=== PATIENT | male | born 1990 | race Caucasian/White ===

== ENCOUNTER 2019-03-04 05:44 | Emergency (ER) | payer OTHER ==
[~2019-03-04] VITALS: Ht 177.8 cm; Wt 95.5 kg
[2019-03-04 06:44] LABS: BASOPHILS # (AUTO) 0.07 x10^3/uL (0-0.1); BASOPHILS % (AUTO) 1 % (0-1); EOSINOPHILS # (AUTO) 0.18 x10^3/uL (0-0.4); EOSINOPHILS % (AUTO) 3 % (1-7); LYMPHOCYTES # (AUTO) 1.28 x10^3/uL (1-3.4); LYMPHOCYTES % (AUTO) 19 % (22-44); MD NO; MEAN CORPUSCULAR HEMOGLOBIN 30.6 pg (27.5-34.5); MEAN CORPUSCULAR HGB CONC 33.1 g/dL (33.2-36.2); MEAN CORPUSCULAR VOLUME 92.6 fL (81-97); MONOCYTES % (AUTO) 9 % (2-9); NEUTROPHILS # (AUTO) 4.52 x10^3/uL (1.8-6.8); NEUTROPHILS % (AUTO) 68 % (42-75); PLATELET COUNT 395 x10^3/uL (130-400); RED BLOOD COUNT 5.12 x10^6/uL (4.38-5.82); RED CELL DISTRIBUTION WIDTH 14.9 % (9.4-14.8)
[2019-03-04 06:56] LABS: ALANINE AMINOTRANSFERASE 44 U/L (12-78); ALBUMIN 3.3 g/dL (3.4-5.0); ANION GAP 3 mmol/L (5-15); CALCIUM 8.6 mg/dL (8.5-10.1); CHLORIDE 109 mmol/L (98-107); CREATININE 1.65 mg/dL (0.7-1.3)
[2019-03-04 06:58] LABS: ALKALINE PHOSPHATASE 52 U/L (45-117); BILIRUBIN,TOTAL 0.6 mg/dL (0.2-1.0); TOTAL PROTEIN 6.3 g/dL (6.4-8.2)
--- NOTE | 2019-03-04 07:00 | NUR ---
RECEIVED REPORT FROM JEFFRY SCHULZ RN. PT BACK FROM XR. MONITORS APPLIED.
--- NOTE | 2019-03-04 07:19 | NUR ---
PT CHART REVIEWED AND PLACED FOR RECHECK.
--- NOTE | 2019-03-04 07:56 | NUR ---
PT TO CT IN STABLE CONDITION.
[2019-03-04 08:25] VITALS: BP 107/66
--- NOTE | 2019-03-04 08:26 | NUR ---
PT RESTING ON GURNEY. NADN. LEY. PT CHART REVIEWED AND PLACED FOR RECHECK.
--- NOTE | 2019-03-04 08:30 | NUR ---
ERP DR. PETERSON AT BEDSIDE FOR RE-EVAL.
== END 2019-03-04 08:46 | disposition home or self-care (01) ==
LOC: ED 07:11
DX: R11.2 Nausea with vomiting, unspecified (principal); R10.13 Epigastric pain
CPT/HCPCS: 36415; 74021; 74176; 80053; 83690; 85025; 99284

== ENCOUNTER 2020-03-12 22:15 | Inpatient (IN) | payer SELFPAY ==
[~2020-03-12] VITALS: Ht 182.9 cm; Wt 97.3 kg
[2020-03-12] MEDS ORDERED: SODIUM CHLORIDE 0.9% 1,000 ML IV ONE (22:29)
[2020-03-12] MEDS ORDERED: SODIUM CHLORIDE 0.9% 1,000ML IVBOLUS ONE ×2 (22:30→23:30)
[2020-03-12] MEDS ORDERED: ONDANSETRON 2MG/ML, 2ML ONE (23:07)
[2020-03-12 23:15] LABS: BASOPHILS # (AUTO) 0.06 x10^3/uL (0-0.1); BASOPHILS % (AUTO) 1 % (0-1); EOSINOPHILS # (AUTO) 0.11 x10^3/uL (0-0.4); EOSINOPHILS % (AUTO) 2 % (1-7); LYMPHOCYTES # (AUTO) 1.25 x10^3/uL (1-3.4); LYMPHOCYTES % (AUTO) 22 % (22-44); MD NO; MEAN CORPUSCULAR HEMOGLOBIN 31.4 pg (27.5-34.5); MEAN CORPUSCULAR HGB CONC 33.4 g/dL (33.2-36.2); MEAN CORPUSCULAR VOLUME 94.1 fL (81-97); MEAN PLATELET VOLUME 7.8 fL (7.4-10.4); MONOCYTES # (AUTO) 0.44 x10^3/uL (0.2-0.8); MONOCYTES % (AUTO) 8 % (2-9); NEUTROPHILS # (AUTO) 3.84 x10^3/uL (1.8-6.8); NEUTROPHILS % (AUTO) 67 % (42-75); PLATELET COUNT 307 x10^3/uL (130-400); RED BLOOD COUNT 5.15 x10^6/uL (4.38-5.82); RED CELL DISTRIBUTION WIDTH 13.6 % (9.4-14.8)
--- NOTE | 2020-03-12 23:19 | NUR ---
PT IN BED, GAGGING IN SLEEP. ERP VERBAL ORDER FOR ZOFRAN. ZOFRAN WAS BEING ADMINISTERED, PT VOMITED WITH MASK AND NC ON, ASPIRATED. PT SUCTIONED. VOMITED AGAIN. SUCTIONED AGAIN. ERP MADE AWARE. PT TAKEN TO TRAUMA 3 FOR INTUBATION. HANDED OFF TO MATEUSZ KIRAN.
--- NOTE | 2020-03-12 23:22 | NUR ---
PT TO T3, PT VOMIT, PREVIOUS RN MEDICATED.
--- NOTE | 2020-03-12 23:23 | NUR ---
ETOMIDATE 20MG GIVEN, SUCC 180MG GIVEN. DR CARVAJAL AND RT AT BS TO INTUBATE.
--- NOTE | 2020-03-12 23:26 | NUR ---
8.5 ET 24 AT LIP GOOD COLOR CHANGE ON COLOROMETER.
[2020-03-12 23:27] LABS: ALANINE AMINOTRANSFERASE 41 U/L (12-78); ALBUMIN 3.6 g/dL (3.4-5.0); ANION GAP 7 mmol/L (5-15); CALCIUM 7.5 mg/dL (8.5-10.1); CHLORIDE 117 mmol/L (98-107); CREATININE 1.48 mg/dL (0.7-1.3)
[2020-03-12 23:29] LABS: ALKALINE PHOSPHATASE 59 U/L (45-117); BILIRUBIN,TOTAL 0.3 mg/dL (0.2-1.0); TOTAL PROTEIN 6.6 g/dL (6.4-8.2)
[2020-03-12] MEDS ORDERED: ETOMIDATE 20 MG/10 ML IV ONE (23:30)
[2020-03-12] MEDS ORDERED: SUCCINYLCHOLINE 20 MG/ML, 10ML IVPush ONE (23:30)
[2020-03-12] MEDS ORDERED: ONDANSETRON 2MG/ML, 2ML IVPush ONE (23:30)
[2020-03-12] MEDS ORDERED: MIDAZOLAM 1 MG/ML, 2ML IVPush ONE (23:30)
[2020-03-12 23:34] LABS: SALICYLATE LEVEL < 1.7 mg/dL (2.8-20.0)
[2020-03-12] MEDS: PROPOFOL 100 ML IV PRN (23:57)
--- NOTE | 2020-03-12 23:59 | NUR ---
PT SEDATED, NG TUBE STARTED, ZAVALA INSERTED. PT REMAINS NSR 90';S ON MONITOR.
[2020-03-13] MEDS ORDERED: VECURONIUM 10 MG IVPush ONE
[2020-03-13] MEDS ORDERED: MIDAZOLAM 1 MG/ML, 5ML IVPush ONE
[2020-03-13] MEDS ORDERED: SODIUM CHLORIDE 0.9% 1,000 ML IV SCH (00:05)
[2020-03-13] MEDS ORDERED: PROPOFOL 100 ML IV PRN (00:27)
[2020-03-13] MEDS ORDERED: NOREPINEPHRINE 8 MG in SODIUM CHLORIDE 0.9% 242 ML IV PRN (00:27)
[2020-03-13] MEDS ORDERED: SENNA 176 MG/5 ML ORAL SOL NG PRN (00:30)
[2020-03-13] MEDS ORDERED: PHARMACY MAY ADJ FOR RENAL FX MC SCH (00:30)
[2020-03-13] MEDS ORDERED: GLUCAGON 1 MG IM PRN (00:30)
[2020-03-13] MEDS ORDERED: BISACODYL 10 MG SUPP PR PRN (00:30)
[2020-03-13] MEDS ORDERED: LIDOCAINE-MPF 1%, 2ML ENDO PRN (00:30)
[2020-03-13] MEDS ORDERED: DEXTROSE 50%, 50ML SYRINGE IVPush PRN (00:30)
[2020-03-13] MEDS ORDERED: DEXTROSE 4 GM TAB.CHEW PO PRN (00:30)
[2020-03-13] MEDS ORDERED: ALBUTEROL SULFATE 2.5 MG/3 ML INLINE SCH (00:30)
[2020-03-13] MEDS ORDERED: HEPARIN 5,000 UNITS/ML, 1ML SQ SCH (00:30)
[2020-03-13] MEDS ORDERED: SENNA/DOCUSATE TABLET NG PRN (00:30)
[2020-03-13] MEDS ORDERED: LACTULOSE 20 GM/30 ML UDC NG PRN (00:30)
--- NOTE | 2020-03-13 00:30 | NUR ---
ALICIA COLLECTED, SENT TO LAB, ABG DRAWN. WILL TAKE TO CT THEN CCU. DR PERSON TO BS ALREADY. YAJAIRA CALLED.
[2020-03-13 00:47] LABS: AMPHETAMINE SCREEN, URINE Negative (Negative); BARBITURATE SCREEN, URINE Negative (Negative); BENZODIAZEPINE SCREEN, URINE Positive (Negative); CANNABINOID SCREEN, URINE Positive (Negative); COCAINE SCREEN, URINE Negative (Negative); METHADONE SCREEN, URINE Negative (Negative); OPIATE SCREEN, URINE Negative (Negative)
--- NOTE | 2020-03-13 00:58 | NUR ---
pt taken to ct and then up to mark in ccu/report given. belongings taken in one bag.
[2020-03-13 01:00] LABS: INTERNATIONAL NORMALIZED RATIO 0.97 (0.93-1.1)
[2020-03-13] MEDS: PROPOFOL 100 ML IV PRN ×2 (01:32→05:17)
[2020-03-13] MEDS: FENTANYL PF 100 MCG/2ML IVPush PRN ×2 (01:33→04:09)
[2020-03-13] MEDS: AMPICILLIN/SULBACTAM 3 GM in SODIUM CHLORIDE 0.9% 100 ML IV SCH ×2 (01:33→06:01)
[2020-03-13 01:53] VITALS: BP 112/50
[2020-03-13] MEDS ORDERED: PROPOFOL 10 MG/ML, 100ML IV ONE (05:00)
[2020-03-13] MEDS ORDERED: MIDAZOLAM 1 MG/ML, 5ML ONE (05:00)
[2020-03-13] MEDS ORDERED: SUCCINYLCHOLINE 20 MG/ML, 10ML ONE (05:00)
[2020-03-13] MEDS ORDERED: ETOMIDATE 20 MG/10 ML ONE (05:00)
[2020-03-13] MEDS ORDERED: VECURONIUM 10 MG ONE (05:00)
[2020-03-13] MEDS ORDERED: ENOXAPARIN 40 MG/0.4 ML SQ SCH (06:30)
[2020-03-13] MEDS ORDERED: POTASSIUM CHLORIDE 20 MEQ, MAGNESIUM SULFATE 1 GM, THIAMINE 200 MG, FOLIC ACID 1 MG, MV... IV SCH (06:30)
[2020-03-13] MEDS ORDERED: SODIUM CHLORIDE FLUSH 10ML SYR IVF SCH (09:00)
[2020-03-13] MEDS ORDERED: FAMOTIDINE 20 MG/2 ML IVPush SCH (09:00)
[2020-03-13] MEDS ORDERED: PANTOPRAZOLE 40 MG IV IV SCH (09:00)
== END 2020-03-13 09:30 | disposition left against medical advice (07) | DRG 208 ==
LOC: ED 03-13 00:10 → EDIP 03-13 00:31 → CCU 03-13 00:55
PROVIDERS: ADMIT Family Medicine; ATTEND Internal Medicine
PROC: 5A1935Z Respiratory Ventilation, Less than 24 Consecutive Hours (ICD-10-PCS; principal; 2020-03-13)
PROC: 0BH17EZ Insertion of Endotracheal Airway into Trachea, Via Natural or Artificial Opening (ICD-10-PCS; 2020-03-13)
DX: J96.01 Acute respiratory failure with hypoxia (principal); G92 Toxic encephalopathy; J69.0 Pneumonitis due to inhalation of food and vomit; F17.200 Nicotine dependence, unspecified, uncomplicated; F10.129 Alcohol abuse with intoxication, unspecified; M41.9 Scoliosis, unspecified; G31.2 Degeneration of nervous system due to alcohol; Y90.8 Blood alcohol level of 240 mg/100 ml or more; N28.9 Disorder of kidney and ureter, unspecified; Z53.29 Procedure and treatment not carried out because of patient's decision for other reasons
CPT/HCPCS: 36415; 36600; 84145; J7613; 70450; 71045; 80053; 80307; 82140; 82803; 83735; 84100; 84478; 85025; 85610; 87070; 87081; 87205; 93005; 94002; 94003; 94640; G0378; J0295; J1644; J1650; J2250; J2405; J2704; J3010; J3411; J3475; J3480; J0330; J7030